=== PATIENT | female | born 1975 | race Caucasian/White ===

== ENCOUNTER → 2021-04-06 | Outpatient (CLI) | payer BC ==
--- NOTE | 2021-04-06 14:05 | Diagnostic Imaging Report ---
Indication: Right breast lump. Correlation is made with prior mammogram from 07/21/2008. 2-D and 3-D bilateral diagnostic mammography was performed with CAD. Both breasts are heterogeneous dense, limiting the sensitivity of mammography. There are benign calcifications in both breasts. No mass is identified. In particular no mass in the medial and inferior right breast is seen at the area of palpable abnormality. No malignant-appearing microcalcifications are seen. The axillae are unremarkable. IMPRESSION: BI-RADS Category 0 No mammographic features suspicious for malignancy are identified. Even so, directed sonographic interrogation of the area of palpable abnormality in the right breast is recommended and will be performed today. ACR BI-RADS Category 0: Incomplete. (Needs additional imaging evaluation). Result letter will be mailed to the patient. Note: At least 10% of breast cancer is not imaged by mammography. Dictated by: Dictated on workstation # [id number]
--- NOTE | 2021-04-06 14:09 | Diagnostic Imaging Report ---
Indication: Palpable lump right breast. Correlation is made with diagnostic mammogram earlier same day. Sonographic interrogation area of palpable abnormality was performed. There appears to be a cyst with septations at the 6:00 location, 6 cm from the nipple corresponding to the palpable abnormality. This measures 13 mm x 5 mm x 9 mm. No internal vascularity is present. No solid mass is detected. IMPRESSION: BI-RADS Category 2 Septated cyst at the 6:00 location right breast corresponding to the palpable abnormality. Patient may return to routine annual screening mammography. ACR BI-RADS Category 2: Benign findings. Dictated by: Dictated on workstation # [id number]
== END ==
LOC: RAD 13:15
PROVIDERS: ATTEND Family Medicine
DX: N60.01 Solitary cyst of right breast (principal)
CPT/HCPCS: 76642; 77066; G0279; 77062